=== PATIENT | female | born 1955 | race Caucasian/White ===

== ENCOUNTER 2024-06-02 19:28 | Emergency (ER) | payer BC, SELFPAY ==
[2024-06-02 19:35] VITALS: BP 123/88; PULSE 103; TEMP 36.9; O2SAT 97; BMI 36.0
--- NOTE | 2024-06-02 19:45 | CT_ITS ---
The [address] [address] Patient Name: EDGAR CARTAGENA MRN: [id number] date: 1955 Sex: F Assigned Patient Location: ER Current Patient Location: Accession/Order Number: [id number] Exam Date: 06/02/2024 20:00 Report Date: 06/02/2024 20:53 At the request of: PINKY FLORES Procedure: CT abdomen pelvis wo con EXAM: CT abdomen pelvis wo con , 06/02/2024 HISTORY: Low back pain, abdominal pain COMPARISON: None. TECHNIQUE: CT scan of the abdomen and pelvis was performed without contrast. Coronal and sagittal reconstructions were performed. Dose reduction techniques were achieved by using automated exposure control and/or adjustment of mA and/or kV according to patient size and/or use of iterative reconstruction technique. FINDINGS: There is diffuse stranding surrounding the sigmoid colon with underlying colonic diverticular disease, consistent with acute sigmoid diverticulitis. No intra-abdominal abscess or evidence of perforation. There is moderate stool throughout the colon. No enlarged lymph nodes in the abdomen, retroperitoneum or the pelvis. No free fluid in the peritoneal cavity. The liver demonstrates punctate calcification, consistent with old granuloma. Postcholecystectomy clips. No biliary dilatation. Subcentimeter hypodensity in the right lobe liver, probable cyst or hemangioma. The spleen, pancreas, both adrenal glands and kidneys are grossly unremarkable given the limitation of a noncontrast study. No urolithiasis or urinary tract dilatation. Urinary bladder is nondistended. Mild atherosclerotic calcification of the abdominal aorta. Unremarkable IVC. Small umbilical hernia containing fatty tissue. The bone windows demonstrate mild degenerative changes thoracic and lumbar spine. Probable hemangioma in L4. Schmorl's node at L2-L3 level. Scans through the lung bases show minimal dependent atelectasis. Calcified right hilar lymph nodes. CT/CT abdomen pelvis wo con IMPRESSION: 1. Diffuse thickening and stranding of the sigmoid colon with underlying colonic diverticular disease, consistent with acute diverticulitis. 2. Postcholecystectomy. Electronically authenticated by: DONA BIRCH Date: 06/02/2024 20:53
--- NOTE | 2024-06-02 19:46 | ED.GENADUL1 ---
HPI HPI - General Adult General Chief complaint: Urogenital-Female Stated complaint: BACK PAIN Time Seen by Provider: 06/02/24 19:33 Source: patient Mode of arrival: walk-in Limitations: no limitations History of Present Illness HPI narrative: Patient is a 68-year-old female who presents to the emergency department for the evaluation of low back pain for the last 3 days. She reports pain in the bilateral lower lumbar area with radiation across the low abdomen. She reports a fever yesterday of 101.0 Fahrenheit. She denies nausea or vomiting. She denies hematuria but has had pain with urination and increased urinary frequency. She denies any history of kidney stones, kidney issues. No medications taken prior to arrival. Related Data Previous Rx's ?Medication ?Instructions ?Recorded ciprofloxacin HCl 500 mg tablet 500 mg PO BID #20 tabs 06/02/24 (Cipro) hyoscyamine sulfate 0.125 mg 0.125 mg PO Q6H PRN abdominal pain 06/02/24 tablet (Levsin) #12 tabs metronidazole 500 mg tablet 500 mg PO Q12H 10 days #20 tabs 06/02/24 ondansetron 4 mg disintegrating 4 mg PO Q6H PRN nausea and 06/02/24 tablet vomiting #12 tabs oxycodone-acetaminophen 5 mg-325 1 tab PO Q6H PRN pain 3 days #12 06/02/24 mg tablet (Percocet) tabs Allergies Allergy/AdvReac Type Severity Reaction Status Date / Time pantoprazole [From Protonix] AdvReac Mild Rash Verified 06/02/24 19:41 Opioid HPI Opioid Management Most Recent Opioid Data: Last Pain Scale 7 06/02/24 20:09 Last ED Pain Assessment 06/02/24 19:49 Review of Systems ROS Constitutional Reports: fever; Denies: chills Ears, nose, mouth, and throat Denies: throat pain or nasal congestion Respiratory Denies: shortness of breath Gastrointestinal Reports: abdominal pain; Denies: nausea, vomiting or diarrhea Genitourinary Reports: painful urination, urinary frequency and pelvic pain Musculoskeletal Reports: back pain; Denies: neck pain or extremity pain Neurological Denies: headache, numbness in extremities or weakness in extremities Hematologic/Lymphatic Denies: easy bruising or easy bleeding Exam Narrative Exam Narrative: Gen.: Awake, alert, in no distress Head: Normocephalic, atraumatic ENT: Moist mucous membranes Respiratory: No respiratory distress Gastrointestinal: Abdomen is soft, nondistended and diffusely mildly tender to palpation with no guarding or rebound Back: Diffuse tenderness of the paraspinal area of the lumbar spine bilaterally with no CVA tenderness Extremities: Moves extremities equally Psych: Normal mood and affect Neuro: No focal neuro deficit Skin: Warm, dry, intact Constitutional Vital Signs, click to edit/add: Last Vital Signs Temp 98.4 F 06/02/24 19:35 Pulse 103 H 06/02/24 19:35 Resp 18 06/02/24 19:35 BP 123/88 06/02/24 19:35 Pulse Ox 97 06/02/24 19:35 O2 Del Method Room Air 06/02/24 19:35 Course Vital Signs Vital signs: Vital Signs Temperature 98.4 F 06/02/24 19:35 Pulse Rate 103 H 06/02/24 19:35 Respiratory Rate 18 06/02/24 19:35 Blood Pressure 123/88 06/02/24 19:35 Pulse Oximetry 97 06/02/24 19:35 Oxygen Delivery Method Room Air 06/02/24 19:35 Temperature 98.4 F 06/02/24 19:35 Pulse Rate 103 H 06/02/24 19:35 Respiratory Rate 18 06/02/24 19:35 Blood Pressure 123/88 06/02/24 19:35 Pulse Oximetry 97 06/02/24 19:35 Oxygen Delivery Method Room Air 06/02/24 19:35 Medical Decision Making MDM Narrative Medical decision making narrative: Patient was medicated with IV fluids, Toradol. She drove herself to the emergency department. Abdomen is soft and benign, vital signs and laboratory studies are within normal limits. Patient appears well-hydrated and nontoxic. Lab studies with no evidence of sepsis, urine specimen is unremarkable and CT scan shows acute diverticulitis. Patient started on Cipro, Flagyl, Levsin, Percocet, Zofran for home. Follow-up with PCP. Clear liquid diet for 48 hours and return to the ER if symptoms change or worsen Medical Records Medical records reviewed: Yes I reviewed the patient's medical records Lab Data Lab results reviewed: Yes I reviewed the patient's lab results Labs: Lab Results 06/02/24 06/02/24 Range/Units 19:40 19:56 WBC 11.0 (4.0-11.0) 10^3/uL RBC 4.38 (4.20-5.40) 10^6/uL Hgb 13.6 (12.0-16.0) g/dL Hct 39.8 (36.0-48.0) % MCV 90.9 (81.0-99.0) fL MCH 31.1 (26.7-34.0) pg MCHC 34.2 (29.9-35.2) g/dL RDW 12.9 (11.0-15.0) % Plt Count 288 (150-450) 10^3/uL MPV 11.8 (9.5-13.5) fL Neut % (Auto) 70.5 (43.0-75.0) % Lymph % (Auto) 17.3 L (20.5-60.0) % [place] % (Auto) 10.5 (1.7-12.0) % Eos % (Auto) 1.1 (0.9-7.0) % Baso % (Auto) 0.4 (0.2-2.0) % Neut # (Auto) 7.8 H (1.4-6.5) 10^3/uL Lymph # (Auto) 1.9 (1.2-3.8) 10^3/uL [place] # (Auto) 1.2 H (0.3-0.8) 10^3/uL Eos # (Auto) 0.1 (0.0-0.7) 10^3/uL Baso # (Auto) 0.0 (0.0-0.1) 10^3/uL Abs Immat Gran (auto) 0.02 (0.00-0.03) 10^3/uL Imm/Tot Granulo (auto) 0.2 (0.0-0.5) % Urine Color Lt. yellow (YELLOW) Urine Clarity Clear (CLEAR) Urine pH 7.0 (5.0-9.0) Ur Specific [place] 1.015 (1.005-1.025) Urine Protein Negative (NEG/TRACE) mg/dL Urine Glucose (UA) Negative (NEGATIVE) mg/dL Urine Ketones Negative (NEGATIVE) mg/dL Urine Occult Blood Moderate A (NEGATIVE) Urine Nitrite Negative (NEGATIVE) Urine Bilirubin Negative (NEGATIVE) Urine Urobilinogen 0.2 (0.2-1.0) EU/dL Ur Leukocyte Esterase Negative (NEGATIVE) Urine RBC 5-10 A (0-2) #/HPF Urine WBC 0-2 A (NONE SEEN) #/HPF Ur Squamous Epith Cells Few A (NONE/RARE) #/LPF Urine Crystals None seen (None Seen) #/HPF Urine Bacteria Trace A (NONE SEEN) #/HPF Urine Casts None seen (NONE SEEN) #/LPF Urine Mucus None seen (NONE SEEN) Ur Culture Indicated? No Imaging Data CT scan - abdomen: Attestation: I have reviewed the pertinent imaging results. Radiologist's impression: ITS Impressions Abdomen/Pelvis CT 06/02/24 19:45 IMPRESSION: 1. Diffuse thickening and stranding of the sigmoid colon with underlying colonic diverticular disease, consistent with acute diverticulitis. 2. Postcholecystectomy. Electronically authenticated by: DONA BIRCH Date: 06/02/2024 20:53 Discharge Plan Discharge Chief Complaint: Urogenital-Female Clinical Impression: Acute diverticulitis Patient Disposition: Home, Self-Care Time of Disposition Decision: 21:04 Condition: Good Prescriptions / Home Meds: New metronidazole 500 mg tablet 500 mg PO Q12H 10 Days Qty: 20 0RF ciprofloxacin HCl [Cipro] 500 mg tablet 500 mg PO BID Qty: 20 0RF oxycodone-acetaminophen [Percocet] 5-325 mg tablet 1 tab PO Q6H PRN (Reason: pain) 3 Days Qty: 12 0RF Rx Instructions: DX: R10.9 hyoscyamine sulfate [Levsin] 0.125 mg tablet 0.125 mg PO Q6H PRN (Reason: abdominal pain) Qty: 12 0RF ondansetron 4 mg tablet,disintegrating 4 mg PO Q6H PRN (Reason: nausea and vomiting) Qty: 12 0RF Print Language: Cuban Instructions: Diverticulitis (ED), Diverticulitis Diet (ED) Referrals: Joanne Ruth DO [Primary Care Provider] - 1 week
[2024-06-02 19:52] LABS: Bilirubin Urine NEGATIVE (NEGATIVE); Blood Urine MODERATE (NEGATIVE); Clarity Urine CLEAR (CLEAR); Color Urine LT. YELLOW (YELLOW); Glucose Urine UA NEGATIVE (NEGATIVE); Ketones Urine NEGATIVE (NEGATIVE); Leukocyte Esterase Urine NEGATIVE (NEGATIVE); Nitrite Urine NEGATIVE (NEGATIVE); Protein Urine NEGATIVE (NEG/TRACE); Specific Gravity Urine 1.015 (1.005-1.025); Urobilinogen Urine 0.2 EU/dL (0.2-1.0)
[2024-06-02 19:59] LABS: Urine Microscopic Indicated YES
[2024-06-02] MEDS: 0.9 % SODIUM CHLORIDE 1,000 ML 999 ML IV (20:09)
[2024-06-02] MEDS: KETOROLAC TROMETHAMINE 30 MG/ML VIAL IVP (20:09)
[2024-06-02 20:25] LABS: Basophils Percent Auto 0.4 % (0.2-2.0); Eosinophils Absolute Auto 0.1 10^3/uL (0.0-0.7); Eosinophils Percent Auto 1.1 % (0.9-7.0); Hematocrit 39.8 % (36.0-48.0); Hemoglobin 13.6 g/dL (12.0-16.0); Immature Granulocytes Abs Auto 0.02 10^3/uL (0.00-0.03); Immature Granulocytes Pct Auto 0.2 % (0.0-0.5); Lymphocytes Absolute Auto 1.9 10^3/uL (1.2-3.8); Lymphocytes Percent Auto 17.3 % (20.5-60.0); Mean Corpuscular HGB Conc 34.2 g/dL (29.9-35.2); Mean Corpuscular Hemoglobin 31.1 pg (26.7-34.0); Mean Corpuscular Volume 90.9 fL (81.0-99.0); Mean Platelet Volume 11.8 fL (9.5-13.5); Monocytes Absolute Auto 1.2 10^3/uL (0.3-0.8); Monocytes Percent Auto 10.5 % (1.7-12.0); Neutrophils Absolute Auto 7.8 10^3/uL (1.4-6.5); Neutrophils Percent Auto 70.5 % (43.0-75.0); Platelet Count 288 10^3/uL (150-450); Red Blood Count 4.38 10^6/uL (4.20-5.40); Red Cell Distribution Width 12.9 % (11.0-15.0)
[2024-06-02 20:36] LABS: Squamous Epithelial Cell Urine FEW #/LPF (NONE/RARE); WBC Urine 0-2 #/HPF (NONE SEEN)
[2024-06-02 20:37] LABS: Bacteria Urine TRACE #/HPF (NONE SEEN); Cast Seen? NONE SEEN #/LPF (NONE SEEN); Crystals Seen? None Seen #/HPF (None Seen); Mucus Urine NONE SEEN (NONE SEEN); Urine Culture Indicated NO
[2024-06-02 21:09] LABS: Alanine Aminotransferase 26 U/L (14-59); Albumin Globulin Ratio 0.8; Albumin Level 3.1 g/dL (3.4-5.0); Alkaline Phosphatase 117 U/L (46-116); Aspartate Amino Transferase 14 U/L (15-37); BUN Creatinine Ratio 15.5; Bilirubin Total 0.5 mg/dL (0.2-1.0); Calcium 8.9 mg/dL (8.5-10.1); Carbon Dioxide 26.8 mmol/L (21.0-32.0); Chloride 101 mmol/L (98-107); Estimated GFR (African America >60 (>=60); Estimated GFR (Non-African Ame 57 (>=60); Glucose 106 mg/dL (74-106); Potassium 3.8 mmol/L (3.5-5.1); Sodium 137 mmol/L (136-145); Total Protein 7.1 g/dL (6.4-8.2)
[2024-06-02] MEDS: METRONIDAZOLE 250 MG TABLET 500 MG PO (21:25)
[2024-06-02] MEDS: CIPROFLOXACIN HCL 500 MG TABLET PO (21:25)
[2024-06-02] MEDS: OXYCODONE HCL/ACETAMINOPHEN 5MG/325MG 2 TAB PO (21:25)
[2024-06-02 21:30] VITALS: BP 126/66; PULSE 80; O2SAT 97
== END 2024-06-02 21:30 | disposition home or self-care (01) ==
PROVIDERS: Physician Assistant; Emergency Provider Emergency Medicine
DX: K57.32 Diverticulitis of large intestine without perforation or abscess without bleeding (principal)
CPT/HCPCS: 36415; 74176; 80053; 81001; 83605; 85025; 96374; 99285; J1885